=== PATIENT | male | born 2000 | race Caucasian/White ===

== ENCOUNTER 2020-04-07 22:36 | Emergency (ER) | payer BC ==
--- NOTE | 2020-04-07 23:10 | EDM.PDOC ---
ED HPI GENERAL MEDICAL PROBLEM - General Chief Complaint: Behavioral/Psych Stated Complaint: mental health check Time Seen by Provider: 04/07/20 22:37 - History of Present Illness INITIAL COMMENTS - FREE TEXT/NARRATIVE: Patient is a 19-year-old male with a history of depression who is not at this time who presents after an episode of suicidal ideation with a plan to kill himself with a firearm. The patient states that there was a significant family argument at home this evening he went downstairs and loaded a gun that he owns he was holding the gun in his hand and was having thoughts of hopelessness and that he would be better off ending his life so that he would not be a burden on his parents. He gave the gun to his father he states that he thought about the trauma that that would put his parents and his girlfriend through and did not want to go through with that. He states that right now he has no active suicidal ideation he denies homicidal ideation he denies any drugs or alcohol use today with the exception of one beer at noon today. He reports that right now he does not have thoughts of self-harm he feels like he can ask for help if he feels this way again he reports that his gun is been locked up and his father safe he reports that the guns in the home are locked up in a safe and that he does not have a way to get into the safe. He states that he feels like he needs to start seeing a counselor again as he often has worsening of his symptoms when he does not see a counselor. - Related Data Allergies Allergy/AdvReac Type Severity Reaction Status Date / Time No Known Allergies Allergy Verified 04/07/20 23:19 Home Meds: Home Meds . [No Known Home Meds] 06/28/14 [History] Past Medical History - Past Health History Medical/Surgical History: Denies Medical/Surgical History Other Neuro History: concussion in 2014, no loc. ED ROS GENERAL - Review of Systems Review Of Systems: See Below Free Text/Narrative/Comment: General: No fever. Skin: No rash. Eyes: No vision problems. ENT: No sore throat. Neck: No neck stiffness. Respiratory: No shortness of breath. Cardiac: No chest pain. Gastrointestinal: No nausea, vomiting or abdominal pain. Urinary: No dysuria. Musculoskeletal: No myalgias/arthralgias. Neurologic: No headache. ED EXAM, GENERAL - Physical Exam Exam: See Below Free Text/Narrative:: General Appearance: No acute distress, appears comfortable Skin: No rash HEENT: Normocephalic/atraumatic, sclera anicteric, mucous membranes moist Neck: Normal range of motion Chest and Lungs: Bilateral breath sounds, clear to auscultation Cardiovascular: Regular rate and rhythm, no murmur Abdomen: Soft, non-tender Back: Normal Musculoskeletal: No edema or tenderness Neurologic: Awake, alert, no obvious deficits, moving all extremities Psychiatric: Appropriate, cooperative, depressed mood with appropriate affect thoughts are linear and goal-directed and future oriented no signs of internal stimuli. No active SI no active HI not clinically intoxicated Course - Vital Signs Last Recorded V/S: Last Vital Signs Temp 97.9 F 04/07/20 22:50 Pulse 99 04/07/20 22:50 Resp 18 04/07/20 22:50 BP 147/97 H 04/07/20 22:50 Pulse Ox 97 04/07/20 22:50 Departure - Departure Time of Disposition: 23:56 Disposition: Home, Self-Care 01 Condition: Good Clinical Impression: Suicidal ideation - Discharge Information *PRESCRIPTION DRUG MONITORING PROGRAM REVIEWED*: Not Applicable *COPY OF PRESCRIPTION DRUG MONITORING REPORT IN PATIENT CHARLEY: Not Applicable Instructions: Suicidal Feelings: How to Help Yourself Referrals: [facility] [Outside] Forms: ED Department Discharge Additional Instructions: If you have any thoughts of harming yourself please tell your girlfriend or your father immediately. Please follow-up with the resources discussed and provided this evening. You are welcome and encouraged to return to the emergency department at any time should your symptoms worsen. The following information is given to patients seen in the emergency department who are being discharged to home. This information is to outline your options for follow-up care. We provide all patients seen in our emergency department with a follow-up referral. The need for follow-up, as well as the timing and circumstances, are variable depending upon the specifics of your emergency department visit. If you don't have a primary care physician on staff, we will provide you with a referral. We always advise you to contact your personal physician following an emergency department visit to inform them of the circumstance of the visit and for follow-up with them and/or the need for any referrals to a consulting specialist. The emergency department will also refer you to a specialist when appropriate. This referral assures that you have the opportunity for follow-up care with a specialist. All of these measure are taken in an effort to provide you with optimal care, which includes your follow-up. Under all circumstances we always encourage you to contact your private physician who remains a resource for coordinating your care. When calling for follow-up care, please make the office aware that this follow-up is from your recent emergency room visit. If for any reason you are refused follow-up, please contact the [facility] Emergency Department at and asked to speak to the emergency department charge nurse. Sepsis Event Note (ED) - Focused Exam Vital Signs: Vital Signs Temp Pulse Resp BP Pulse Ox 04/07/20 22:50 97.9 F 99 18 147/97 H 97 - Assessment/Plan Assessment:: 19-year-old male presenting with suicidal ideation with near attempt regarding a firearm. Patient thought through the episode himself and voluntarily surrendered the gun he is calm he is cooperative he has no active HI or SI his thoughts are future oriented he describes multiple protective factors including his relationship with his girlfriend and his father. He states that he feels safe with himself he adamantly denies any active SI he has no clinical intoxication he has no signs of psychosis he contracts for safety and states that he will reach out to his girlfriend or his father if he has similar thoughts develop in the future. Patient is not interested in inpatient hospitalization at this point and given his lack of active SI I do not think I can involuntarily detain him. Police contacted the [place] assistant county attorney who also declined [facility]. Patient discharged with resources and safety contract filled out. [id number]: Pt's father at bedside. He is comfortable taking the patient home. He states that typically after nights like this he does well for a time. We discussed the importance of prompt follow-up. Multiple resources were provided and the patient will be contacted by PCP triage tomorrow AM as well. Patient feels safe going home. Father confirmed that all firearms will be locked in the safe which the patient does not have access to. The patient has completed his safety plan and promises to reach out to someone should he feel worse. He confirms again that he is not suicidal at this time.
[2020-04-07 23:19] VITALS: BP 147/97; PULSE 99
== END 2020-04-08 00:10 | disposition home or self-care (01) ==
LOC: MW.ED 22:36
DX: R45.851 Suicidal ideations (principal)
CPT/HCPCS: 99282; 99284

== ENCOUNTER 2022-01-02 06:51 | Emergency (ER) | payer BC ==
[2022-01-02] MEDS ORDERED: Oxymetazoline 0.05% Nasal Spray 30 ML Bottle NAS ONE (07:13)
[2022-01-02 08:21] VITALS: BP 135/75; PULSE 62
== END 2022-01-02 08:17 | disposition home or self-care (01) ==
LOC: MW.ED 06:51
DX: R04.0 Epistaxis (principal)
CPT/HCPCS: 99282; 99283

== ENCOUNTER 2022-07-25 12:20 | Emergency (ER) | payer BC | END 2022-07-25 17:34 | disposition left against medical advice (07) | LOC: MW.ED 12:20 | DX: Z53.21 Procedure and treatment not carried out due to patient leaving prior to being seen by health care provider (principal) ==